=== PATIENT | female | born 1960 | race Caucasian/White ===

== ENCOUNTER 2019-02-19 07:23 | Inpatient (IN) | payer OTHER ==
[2019-02-19] MEDS ORDERED: SEVOFLURANE 250 ML LIQUID IH ONE (08:48)
[2019-02-19] MEDS ORDERED: ceFAZolin SODIUM 1 GM VIAL ONE (08:48)
[2019-02-19] MEDS ORDERED: LIDOCAINE HCL 2% PF 100MG/5ML VIAL IJ ONE (08:48)
[2019-02-19] MEDS ORDERED: ROCURONIUM BROMIDE 10 MG/ML 5ML VIAL ONE (08:48)
[2019-02-19] MEDS ORDERED: ONDANSETRON HCL/PF 4 MG/ 2ML VIAL ONE (08:48)
[2019-02-19] MEDS ORDERED: LACTATED RINGERS 1,000 ML IV.SOLN IV ONE (08:48)
[2019-02-19] MEDS ORDERED: PHENYLEPHRINE HCL 10 MG/1 ML ONE (08:48)
[2019-02-19] MEDS ORDERED: SODIUM CHLORIDE IRRIG SOLUTION 3,000 ML IRRIG.SOLN IR ONE (08:48)
[2019-02-19] MEDS ORDERED: LIDOCAINE HCL 1% PF 300MG/30ML VIAL ONE (08:48)
[2019-02-19] MEDS ORDERED: PROPOFOL 200 MG/20 ML VIAL IV ONE (08:48)
[2019-02-19] MEDS ORDERED: ePHEDrine SULFATE 50 MG/1 ML IVP ONE (08:48)
[2019-02-19] MEDS ORDERED: DEXAMETHASONE SODIUM PHOSPHATE 10 MG/ML VIAL ONE (08:48)
[2019-02-19] MEDS ORDERED: GLYCOPYRROLATE 0.2 MG/1 ML 1 ML ONE (08:48)
[2019-02-19] MEDS ORDERED: BUPIV. HCL 0.25% (2.5MG/ML)/EPI. (1:200,000) PF 30 ML VIAL IJ ONE (08:48)
[2019-02-19] MEDS ORDERED: ENOXAPARIN SODIUM 40 MG/0.4 ML DISP.SYRIN SQ ONE (08:48)
[2019-02-19] MEDS ORDERED: MIDAZOLAM HCL 2 MG/2 ML VIAL ONE (08:48)
[2019-02-19] MEDS ORDERED: FAMOTIDINE 20 MG/2 ML VIAL IV ONE (08:48)
[2019-02-19] MEDS ORDERED: LACTATED RINGERS 1,000 ML IV ONE (09:59)
[2019-02-19] MEDS ORDERED: HYDROmorphone HCL/PF 1 MG/ML VIAL ONE (10:49)
--- NOTE | 2019-02-19 11:21 | History and Physical Report ---
History of Present Illnes - History of Present Illness Reason for Visit: S/P LSG History of Present Illness: Patient is a 58-year-old female who has tried multiple diets and exercise programs with no success. She has always struggled with her weight which has worsened since having children. Patient and surgeon decided to proceed with gastric sleeve procedure. Procedure went well- She will be admitted and monitored s/p surgical intervention. Patient has been on a liquid diet prior to surgery so she is a risk of dehydration s/p surgery. She will be admitted for IV hydration to help hydrate patient until she is able to tolerate a sufficient oral intake, will treat pain with IV medication until patient is able to tolerate oral meds, IV antiemetics to help reduce episodes of nausea and/or vomiting. Patient will be monitored closely using telemetry s/p surgery d/t HTN, hx of TIA. Will encourage incentive spirometer for COPD. Patient appears very uncomfortable s/p surgery. - Past Medical History Cardiac: HTN, Hyperlipidemia Pulmonary: COPD, Sleep Apnea (NO CPAP) [employer]: CVA (2012), TIA, Other (INSOMNIA) Gastrointestinal: GERD Heme/Onc: Anemia NOS Psych: Anxiety, Depression Musculoskeletal: Chronic low back pain, Other (DDD) ENT: Sinusitis Renal/: Other (CKD STAGE 3) Endocrine: obesity - Past Surgical History Past Surgical History: (1990), Hysterectomy, Other (CTR, ), Other (BACK ) - Past Family History Mother Family History: Cancer, Father Family History: Cancer - Past Social History Smoke: 1 pack per day, Quit (1 YEAR AGO) Alcohol: None Drugs: None Lives: With Family Domestic Violence: Negative - Health Maintenance Health Maintenance: Cholesterol Influenza Vaccine: No Pneumonia Vaccine: No - Unable to Obtain History Unable to Obtain: No Review of Systems - Review of Systems Constitutional: negative: Fever, Chills Eyes: negative: conjunctivae inflammation, eyelid inflammation ENT: negative: Ear Pain, Ear Discharge, Throat Pain Respiratory: SOB with Excertion. negative: Cough Cardiovascular: negative: Chest Pain, Edema, Light Headedness Gastrointestinal: Nausea, Abdominal Pain. negative: Vomiting Genitourinary: negative: Dysuria Musculoskeletal: Back Pain (chronic) Skin: negative: Rash Neurological: Weakness - Medications/Allergies Allergies/Adverse Reactions: Allergies Allergy/AdvReac Type Severity Reaction Status Date / Time No Known Allergies Allergy Verified 02/19/19 11:39 Home Medications: Home Medications Atorvastatin Calcium 10 mg PO HS 02/19/19 Buspirone HCl [Buspar] 15 mg PO BID 02/19/19 Cyclobenzaprine HCl 10 mg PO BID 02/19/19 Duloxetine HCl 60 mg PO BID 02/19/19 Fluticasone/Vilanterol [Breo Ellipta 100-25 Mcg INH] 1 inh INH DAILY 02/19/19 Fluticasone/Vilanterol [Breo Ellipta 100-25 Mcg INH] 62.5 mcg INH DAILY 02/19/19 Gabapentin 300 mg PO TID 02/19/19 Hydroxyzine HCl 25 mg PO TID 02/19/19 Lisinopril 20 mg PO DAILY 02/19/19 Omeprazole 40 mg PO DAILY 02/19/19 Oxycodone HCl/Acetaminophen [Oxycodon-Acetaminophen 7.5-325] 1 tab PO QID 02/19/19 Exam - Exam General: Alert, Oriented to Person, Moderate distress, Morbidly Obese HEENT: Atraumatic, PERRLA, Mouth Mucous membr. moist/[place], Nose Mucous membr. moist/[place] Neck: Normal Range of Motion Carotids: No bruit Lungs: Clear to auscultation Cardiovascular: Regular rate, Normal S1, Normal S2 Peripheral Edema: none Peripheral Pulses: 2+ Abdomen: Soft, Decreased Bowel Sounds Integumentary: Warm, Dry, Pale, Other (incisions x 5 without redness/erythema; skin adhesive intact) Extremities: No edema, Normal pulses Neurological: Strength Equal Bilat, Sensation intact, Generalized Weakness Psych/Mental Status: Mental status NL Assessment/Plan - Assessment/Plan (1) S/P laparoscopic sleeve gastrectomy Status: Acute Plan: Plan to admit for IV hydration, IV pain meds, and IV antiemetics. Lovenox and SCDs to help prevent DVTs, IS and frequent ambulation will be implemented. Start ice chips and advance diet as tolerated. IV pepcid BID (2) Morbid (severe) obesity due to excess calories Status: Acute Plan: Patient is s/p gastric sleeve. We will assist patient with implementing gastric sleeve diet protocol starting with ice chips and clear liquids and advancing as tolerated. (3) Hypertension Status: Acute Qualifiers: Hypertension type: essential hypertension Qualified Code(s): I10 - Essential (primary) hypertension Plan: Will hold medication until able to tolerate PO- will monitor blood pressures closely (4) Obstructive sleep apnea Status: Acute Plan: Will monitor pulse ox and resp. status closely (5) Anxiety and depression Status: Acute Plan: Will hold medication until able to tolerate PO- will monitor closely (6) Nausea and vomiting Status: Acute Plan: Pepcid IV BID ordered; IV antiemetics, and IVFs (7) Dehydration Status: Acute Plan: Will start NS at 150cc/hr (8) COPD (chronic obstructive pulmonary disease) Status: Acute Plan: Will monitor resp. status and check pulse ox; duonebs ordered as needed VTE Assessment - RISK FACTOR SCORE VTE RISK FACTOR SCORES: AGE 40-60 YEARS, OBESITY, MAJOR SURGERY/ANESTHESIA TIME > 1 HOUR - RISK VTE HIGH RISK: SCORE OF 3-4 (RISK PROXIMAL DVT 4-8%) PROPHYLAXIS NEEDED (Lovenox daily, SCDs while in bed, Incentive spirometer, frequent ambulation)
[2019-02-19] MEDS ORDERED: MORPHINE SULFATE 2 MG/ML VIAL IV PRN (11:27)
[2019-02-19] MEDS ORDERED: IPRATROPIUM/ALBUTEROL SULFATE 3 ML AMPUL.NEB NEB PRN (11:27)
[2019-02-19 11:35] VITALS: BMI 35.6
[2019-02-19] MEDS: 0.9 % SODIUM CHLORIDE 1,000 ML IV SCH ×2 (11:43→18:14)
[2019-02-19] MEDS: ONDANSETRON HCL/PF 4 MG/ 2ML VIAL IVP PRN ×2 (16:50→22:30)
[2019-02-19] MEDS: ACETAMINOPHEN 1,000 MG/100 ML INJ IV PRN (16:52)
[2019-02-19] MEDS: ceFAZolin SODIUM 1 GM in 0.9 % SODIUM CHLORIDE 50 ML IV SCH (17:29)
[2019-02-19] MEDS: PROMETHAZINE HCL 25 MG in 0.9 % SODIUM CHLORIDE 50 ML IV PRN (18:37)
[2019-02-19] MEDS: FAMOTIDINE 20 MG/2 ML VIAL IVP SCH (21:28)
[2019-02-19] MEDS: FLUTICASONE/SALMETEROL 250-50 INHALER IH SCH (23:11)
[2019-02-20] MEDS: 0.9 % SODIUM CHLORIDE 1,000 ML IV SCH ×4 (00:51→15:41)
[2019-02-20] MEDS: ceFAZolin SODIUM 1 GM in 0.9 % SODIUM CHLORIDE 50 ML IV SCH (00:52)
[2019-02-20] MEDS: ACETAMINOPHEN 1,000 MG/100 ML INJ IV PRN (02:04)
[2019-02-20] MEDS: PROMETHAZINE HCL 25 MG in 0.9 % SODIUM CHLORIDE 50 ML IV PRN (04:25)
[2019-02-20] MEDS: FLUTICASONE/SALMETEROL 250-50 INHALER IH SCH ×3 (05:08→22:01)
[2019-02-20 06:13] LABS: BASOPHILS % 0.2 % (0.0-1.5); NEUTROPHILS # 7.9 # k/uL (1.4-7.7)
[2019-02-20 06:14] LABS: eGFR (Non-African) > 60
--- NOTE | 2019-02-20 07:12 | Inpatient Progress Note ---
Subjective - Required Recertification Statement I anticipate X number of days because-include discharge plan: 1 - Review of Systems Events since last encounter: Patient is lying in bed this morning awake. She states that she did not get much sleep. She was having a lot of discomfort last night. She states that pain is improving. She has had some nausea and moderate discomfort from the gas. She denies any chest pain or shortness of breath. She has not been compliant with Incentive Spirometer or walking; family at bedside is frustrated with patient because she is not doing what she is suppose. Re-educated patient about getting up and walking (had patient walk 5 laps on the unit while I was there)- had patient use incentive spirometer while I was there. Explained that nursing would be in every hour to have her use incentive spirometer and every 2 hours to get patient up and walking; patient rolled her eyes; had patient explain why it was important to walk and use incentive spirometer. HGB slightly low this morning. Will recheck H &H at 18:00- patient is not symptomatic; pink warm dry. Denies dizziness, CP or SOA. General: Denies: Chills HEENT: Denies: Dysphasia Pulmonary: Denies: Dyspnea, Cough Cardiovascular: Denies: Chest Pain, Edema Gastrointestinal: Nausea, Abdominal Pain. Denies: Vomiting Genitourinary: Denies: Dysuria Musculoskeletal: Back Pain Neurological: Denies: Weakness Objective - Exam Vitals and I&O: Vital Signs Temp 97.9 F 02/20/19 05:31 Pulse 81 02/20/19 05:31 Resp 18 02/20/19 05:31 BP 151/87 02/20/19 05:31 Pulse Ox 95 02/20/19 06:00 Intake & Output 02/19/19 02/19/19 02/20/19 11:59 23:59 11:59 Intake Total 20 60 2040 Output Total 100 475 Balance 20 -40 1565 Weight 94.347 kg Intake: IV 1800 Left hand 1800 Oral 20 60 240 Output: Urine 100 475 Other: Voiding Method Toilet Toilet Toilet # Voids 1 1 # Bowel Movements 0 General: Alert, Oriented to Person, Oriented to Place, Oriented to Time, No acute distress, Morbidly Obese HEENT: Atraumatic, PERRLA, Mouth Mucous membr. moist/[place], Nose Mucous membr. moist/[place] Neck: Supple, +2 carotid pulse wo bruit Lungs: Clear to auscultation, Normal air movement, Speaks full Sentences Cardiovascular: Regular rate, Normal S1, Normal S2 Abdomen: Normal bowel sounds, Soft Extremities: No edema, Normal pulses, No tenderness/swelling Skin: Normal, [place], Warm, Dry, Other (incisions are without redness/erythema/drainage; skin adhesive intact) Neurological: Normal gait, Normal speech, Strength Equal Bilat, Generalized Weakness Psych/Mental Status: Mental status NL, Intact Judgment - Results Results: Laboratory Results WBC 9.20 K/ul (4.00-12.00) 02/20/19 04:40 RBC 3.02 M/ul (3.90-5.20) L 02/20/19 04:40 Hgb 9.0 g/dL (11.5-16.0) L 02/20/19 04:40 Hct 26.5 % (34.5-46.5) L 02/20/19 04:40 MCV 88.0 fl (80.0-100.0) 02/20/19 04:40 MCH 29.8 pg (28.0-34.0) 02/20/19 04:40 MCHC 33.9 g/dL (30.0-36.0) 02/20/19 04:40 RDW 13.8 % (11.3-14.3) 02/20/19 04:40 Plt Count 304 K/mm3 (130-400) 02/20/19 04:40 Neut % (Auto) 86.0 % (39.0-79.0) H 02/20/19 04:40 Lymph % (Auto) 7.1 % (16.0-50.0) L 02/20/19 04:40 [place] % (Auto) 6.1 % (0.0-11.0) 02/20/19 04:40 Eos % (Auto) 0.6 % (0.0-6.8) 02/20/19 04:40 Baso % (Auto) 0.2 % (0.0-1.5) 02/20/19 04:40 Neut # (Auto) 7.9 # k/uL (1.4-7.7) H 02/20/19 04:40 Lymph # (Auto) 0.7 # k/uL (0.6-4.0) 02/20/19 04:40 [place] # (Auto) 0.6 # k/uL (0.0-0.9) 02/20/19 04:40 Eos # (Auto) 0.1 # k/uL (0.0-0.6) 02/20/19 04:40 Baso # (Auto) 0.0 # k/uL (0.0-0.5) 02/20/19 04:40 Sodium 140 mmol/L (137-145) 02/20/19 04:40 Potassium 5.1 mmol/L (3.5-5.1) 02/20/19 04:40 Chloride 104 mmol/L (98-107) 02/20/19 04:40 Carbon Dioxide 23 mmol/L (22-30) 02/20/19 04:40 Anion Gap 18.1 02/20/19 04:40 BUN 29 mg/dL (7-17) H 02/20/19 04:40 Creatinine 1.22 mg/dL (0.52-1.04) H 02/20/19 04:40 Estimated Creat Clear 89 02/20/19 04:40 Est GFR ( Amer) > 60 (60-) 02/20/19 04:40 Est GFR (Non-Af Amer) > 60 (60-) 02/20/19 04:40 Glucose 148 mg/dL (74-106) H 02/20/19 04:40 Calcium 8.7 mg/dL (8.4-10.2) 02/20/19 04:40 Total Bilirubin 0.3 mg/dL (0.2-1.3) 02/20/19 04:40 AST 33 U/L (15-46) 02/20/19 04:40 ALT 18 U/L (13-69) 02/20/19 04:40 Alkaline Phosphatase 83 U/L (38-126) 02/20/19 04:40 Total Protein 6.5 g/dL (6.3-8.2) 02/20/19 04:40 Albumin 3.8 g/dL (3.5-5.0) 02/20/19 04:40 Assessment/Plan - Assessment/Plan (1) S/P laparoscopic sleeve gastrectomy Status: Acute Assessment: Patient experiencing nausea; nursing encouraging patient to walk, wearing SCDs while in bed, nursing encouraging patient to use incentive spirometry, patient receiving lovenox to prevent DVT Plan: Patient getting IV fluids for hydration, IV pain meds, and IV antiemetics. Lovenox and SCDs to help prevent DVTs, IS and frequent ambulation will be implemented. Patient eating ice chips and will advance diet to clear liquids as tolerated once nausea and vomiting is controlled. Will continue with Pepcid IV BID for GI upset (2) Morbid (severe) obesity due to excess calories Status: Acute Assessment: Patient tolerating ice chips and water; some nausea Plan: Will advance diet to clear liquids today (3) Hypertension Status: Acute Qualifiers: Hypertension type: essential hypertension Qualified Code(s): I10 - Essential (primary) hypertension Assessment: Blood pressures are stable; denies any chest pain Plan: Will continue to check VS; blood pressures stable at this time (4) Obstructive sleep apnea Status: Acute Assessment: Doing well with sleep apnea Plan: Use CPAP (5) Anxiety and depression Status: Acute Assessment: Symptoms stable at this time Plan: Will continue to monitor (6) Nausea and vomiting Status: Acute Assessment: Patient still experiencing some nause- no vomiting Plan: Will continue with IV Zofran and phenergan; IV pepcid BID (7) Dehydration Status: Acute Assessment: BUN/CR 29/1.2 Plan: Will continue with IVF and encourage sips of water (8) COPD (chronic obstructive pulmonary disease) Status: Acute Assessment: Patient has SOA with exertion d/t obesity; LCTA; No SOA at rest. Plan: Duonebs ordered as needed; will continue to monitor; will check pulse ox
[2019-02-20] MEDS: FAMOTIDINE 20 MG/2 ML VIAL IVP SCH ×2 (08:53→21:59)
--- NOTE | 2019-02-20 09:20 | Operative Note ---
PREOPERATIVE DIAGNOSIS: 1. Morbid obesity. 2. Hypertension. POSTOPERATIVE DIAGNOSIS: 1. Morbid obesity. 2. Hypertension. PROCEDURES PERFORMED: 1. Laparoscopic vertical sleeve gastrectomy. 2. Upper gastrointestinal endoscopy. SURGEON: Thiago Mccarthy M.D. INDICATIONS FOR PROCEDURE: Ms. Yeboah is a 58-year-old female who presented with features of morbid obesity. She was noted to have a weight of 224 pounds with a BMI of 38.5 with the above-listed comorbidities. The patient was advised laparoscopic vertical sleeve gastrectomy and possible hiatal hernia repair. The patient showed understanding and agreed to proceed. DESCRIPTION OF PROCEDURE: After explaining to the patient in detail and informed consent was obtained, the patient was identified in the preoperative holding area. The patient was transferred to the operating room and was placed in supine position. Sequential compressive devices were placed for DVT prophylaxis. Preoperative antibiotics were given. After induction of anesthesia, the abdomen was prepped and draped in a sterile fashion. Through a left upper quadrant 1-cm incision, and using Optiview technique, the peritoneal cavity was entered and pneumoperitoneum was created. Thereafter, under direct vision, another 5-mm trocar was placed in the left midabdomen and another 15-mm trocar was placed in the right midabdomen. Through a 1-cm incision in the right subcostal region, another 5-mm trocar was placed. Through a 1-cm incision in the epigastrium, a Aida retractor was introduced and the left lobe of the liver was retracted. On initial inspection, the patient was noted to have no evidence of hiatal hernia. I took down the gastroepiploic vessels using a LigaSure. This was continued superiorly. The short gastric vessels were taken down. The gastrophrenic ligament was divided and the Angle of His was mobilized. The posterior attachments of the stomach on the pancreas were released. Distally, the gastroepiploic vessels were taken down up to about 4 cm proximal to the pylorus. At this point, a #38 [place] Hurst Bougie was introduced into the stomach and was placed along the lesser curve. The stomach was then divided in a vertical fashion with multiple Endo NOAH Covidien Black Load Staplers. The first firing was directed outwards towards the greater curvature. Subsequent firings were directed towards the Angle of His to create a loose sleeve around the #38 Danish bougie. The bougie was then removed and an upper GI endoscopy was performed at this point. The scope was introduced into the esophagus and was gradually advanced into the stomach. The GE junction appeared normal. The sleeve size appeared normal. No evidence of any active bleeding was noted. The stomach was insufflated with air and irrigation of fluid along the staple line revealed no evidence of air leak. The stomach was then suctioned out and the scope was removed. Absolute hemostasis was ensured. Thorough saline irrigation was given. The Aida retractor was removed. Approximately 10 mL of a lidocaine- Marcaine mix was instilled under the left hemidiaphragm. The sleeve gastrectomy specimen was removed. The abdomen was then deflated. The incisions were closed with 4-0 Monocryl. Dermabond was applied. Approximately 10 mL of a lidocaine- Marcaine mix was injected into all the incisions. The patient was awakened from anesthesia and was transferred to the recovery room in stable condition. ESTIMATED BLOOD LOSS: Approximately 20 mL. CONDITION OF THE PATIENT: Stable. FLUIDS GIVEN: Per Anesthesia note. SPECIMEN(S) SENT: Sleeve gastrectomy specimen. COMPLICATIONS: None. ANESTHESIA: General. Thiago Mccarthy M.D. JEANETH/julissa (Please copy [facility] provider when applicable) Job #[id number] SHELLY
[2019-02-20] MEDS: ENOXAPARIN SODIUM 30 MG/0.3 ML DISP.SYRIN SQ SCH (11:20)
[2019-02-20] MEDS: HYDROcodone-ACETAMIN 7.5-325/15ML SOLN UD CUP PO PRN ×2 (11:20→15:52)
[2019-02-20] MEDS ORDERED: KETOROLAC TROMETHAMINE 30 MG/1ML VIAL IV PRN (11:27)
[2019-02-20 20:59] LABS: BASOPHILS % 0.2 % (0.0-1.5)
[2019-02-21] MEDS: 0.9 % SODIUM CHLORIDE 1,000 ML IV SCH (06:44)
[2019-02-21 08:54] LABS: BASOPHILS % 0.3 % (0.0-1.5); NEUTROPHILS # 6.1 # k/uL (1.4-7.7)
[2019-02-21] MEDS: ENOXAPARIN SODIUM 30 MG/0.3 ML DISP.SYRIN SQ SCH (08:58)
[2019-02-21] MEDS: FLUTICASONE/SALMETEROL 250-50 INHALER IH SCH (08:58)
[2019-02-21] MEDS: FAMOTIDINE 20 MG/2 ML VIAL IVP SCH ×2 (09:18→09:31)
[2019-02-21 09:37] VITALS: BP 132/75
--- NOTE | 2019-02-21 10:02 | Discharge Summary ---
Discharge Summary - Discharge [facility] Admission Date: 02/19/19 Discharge Date: 02/21/19 Discharge To: Home History of Present Illness: Patient is a 58-year-old female who has tried multiple diets and exercise programs with no success. She has always struggled with her weight which has worsened since having children. Patient and surgeon decided to proceed with gastric sleeve procedure. Procedure went well- She will be admitted and monitored s/p surgical intervention. Patient has been on a liquid diet prior to surgery so she is a risk of dehydration s/p surgery. She will be admitted for IV hydration to help hydrate patient until she is able to tolerate a sufficient oral intake, will treat pain with IV medication until patient is able to tolerate oral meds, IV antiemetics to help reduce episodes of nausea and/or vomiting. Patient will be monitored closely using telemetry s/p surgery d/t HTN, hx of TIA. Will encourage incentive spirometer for COPD. Patient appears very uncomfortable s/p surgery. Condition at Discharge: Stable Home Medications: Ambulatory Orders Medication Instructions Recorded Atorvastatin Calcium 10 mg PO HS 02/19/19 Buspirone HCl [Buspar] 15 mg PO BID 02/19/19 Cyclobenzaprine HCl 10 mg PO BID 02/19/19 Duloxetine HCl 60 mg PO BID 02/19/19 Fluticasone/Vilanterol [Breo 1 inh INH DAILY 02/19/19 Ellipta 100-25 Mcg INH] Fluticasone/Vilanterol [Breo 62.5 mcg INH DAILY 02/19/19 Ellipta 100-25 Mcg INH] Gabapentin 300 mg PO TID 02/19/19 Hydroxyzine HCl 25 mg PO TID 02/19/19 Lisinopril 20 mg PO DAILY 02/19/19 Omeprazole 40 mg PO DAILY 02/19/19 Oxycodone HCl/Acetaminophen 1 tab PO QID 02/19/19 [Oxycodon-Acetaminophen 7.5-325] Consultations this Visit: None Procedures this Visit: Other (S/P LSG) Allergies/Adverse Reactions: Allergies Allergy/AdvReac Type Severity Reaction Status Date / Time No Known Allergies Allergy Verified 02/19/19 11:39 Discharge Summary: Patient is a 58-year-old female that underwent the gastric sleeve procedure. She had some issues with nausea and dry heaves but has done well. She has been ambulating as instructed by nursing, using her incentive spirometer under supervision of nursing and myself, and wearing her SCDs while in bed. She has been compliant with her diet during hospitalization. She is having minimal discomfort at this time and minimal nausea- she has is passing gas and belching. She is aware of discharge instructions and what she can and cannot do post edwards rgical- she is aware of the strict diet she must follow to decrease discomfort and have success after procedure. She has family support and family will be taking her home- medications written by surgeon given to patient. She feels ready to go home. 09:[address] Mccarthy, patient is doing well, we will go ahead and discharge and she will follow up in the clinic (HGB was low but patient is not symptomatic). Patient is not very compliant with walking or using incentive spirometer; family has also been trying to encourage patient; patient ambulated in the ospina 5 times; asymptomatic. Hospital Course: Patient received IV pain medications, antiemetics, and IVF and was transitioned to oral. She has been up ambulating and using incentive spirometer. - Final Diagnosis (1) S/P laparoscopic sleeve gastrectomy Problems: Continue with bariatric sleeve diet- clear liquids today and start full liquids tomorrow; protein shake 80-100 grams protein Right or Left: Right (2) Morbid (severe) obesity due to excess calories Problems: Incision without redness or drainage, positive bowel sounds, minimal discomfort, belching and flatus, no extremity pain or edema, LCTA Right or Left: Right (3) Hypertension Problems: Stable- continue on home meds Right or Left: Right (4) Obstructive sleep apnea Right or Left: Right (6) Nausea and vomiting Problems: Stable- script sent with patient for phenergan Right or Left: Right (7) Dehydration Problems: Patient drinking well; discussed 64 oz of water daily Right or Left: Right (8) COPD (chronic obstructive pulmonary disease) Problems: Stable continue on home meds Right or Left: Right
== END 2019-02-21 10:30 | disposition home or self-care (01) | DRG 621 ==
LOC: OPSURG 07:23 → SOUTH 11:15
PROVIDERS: ADMIT Nurse Practitioner Family; ATTEND Nurse Practitioner Family
PROC: 0DB64Z3 Excision of Stomach, Percutaneous Endoscopic Approach, Vertical (ICD-10-PCS; principal; 2019-02-19)
DX: E66.01 Morbid (severe) obesity due to excess calories (principal); I12.9 Hypertensive chronic kidney disease with stage 1 through stage 4 chronic kidney disease, or unspecified chronic kidney disease; J44.9 Chronic obstructive pulmonary disease, unspecified; N18.3 Chronic kidney disease, stage 3 (moderate); E78.5 Hyperlipidemia, unspecified; K21.9 Gastro-esophageal reflux disease without esophagitis; F32.9 Major depressive disorder, single episode, unspecified; F41.9 Anxiety disorder, unspecified; G89.29 Other chronic pain; M54.5 Low back pain; G47.33 Obstructive sleep apnea (adult) (pediatric); E86.0 Dehydration; D63.1 Anemia in chronic kidney disease; Z68.38 Body mass index [BMI] 38.0-38.9, adult; Z86.73 Personal history of transient ischemic attack (TIA), and cerebral infarction without residual deficits; Z90.710 Acquired absence of both cervix and uterus; Z87.891 Personal history of nicotine dependence; Z79.51 Long term (current) use of inhaled steroids; Z79.899 Other long term (current) drug therapy
CPT/HCPCS: 80053; 85025; 88305; 97116; 97161; 97165; 97530; 97535; A9270; J0690; J1170; J1650; J2001; J2250; J2270; J2370; J2405; J2550; J2704; J3490; J7030; J7120; 43235; 43775; 99221; 99231; 99238